=== PATIENT | male | born 1970 ===

== ENCOUNTER 2021-04-11 16:28 | Outpatient (REF) | payer BC, SELFPAY ==
[2021-04-11 21:27] LABS: Hemoglobin A1C 5.6 % (<5.7)
[2021-04-11 21:31] LABS: Calculated LDL 145 mg/dL (<100); Cholesterol 236 mg/dL (<200); HDL Cholesterol 39 mg/dL (40-60); Triglyceride 262 mg/dL (<150)
[2021-04-14 05:23] LABS: Vitamin D 25 Total 43.8 ng/mL (30-100)
== END 2021-04-11 16:29 | disposition home or self-care (01) ==
LOC: NCHCN 16:28
PROVIDERS: PCP Family Medicine; Visit Provider Family Medicine
DX: Z00.00 Encounter for general adult medical examination without abnormal findings (principal); R73.03 Prediabetes; E55.9 Vitamin D deficiency, unspecified
CPT/HCPCS: 80061; 82306; 83036